=== PATIENT | male | born 1995 | race Caucasian/White ===

== ENCOUNTER 2017-05-13 00:12 | Emergency (ER) | payer MEDICAID ==
[~2017-05-13 00:12] MED LIST: KEFLEX500 M1 PO; NO MEDICATIONS; VOLTAREN75 MG PO
== END 2017-05-13 02:00 | disposition home or self-care (01) ==
LOC: CED 00:12
DX: S61.411A Laceration without foreign body of right hand, initial encounter (principal); F17.210 Nicotine dependence, cigarettes, uncomplicated; Z88.0 Allergy status to penicillin; W26.9XXA Contact with unspecified sharp object(s), initial encounter
CPT/HCPCS: 12001; 99283